=== PATIENT | male | born 2000 | race Hispanic/Latino ===

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

== ENCOUNTER 2022-03-20 13:07 | Emergency (ER) | payer SELFPAY ==
[2022-03-20 13:16] VITALS: BP 151/96; PULSE 54; RESP 16; TEMP 36.8; O2SAT 100
--- NOTE | 2022-03-20 13:29 | ED.MALEGU ---
HPI - Male Genitourinary General Chief complaint: Urogenital-Male Stated complaint: Swollen and painful right testical Time Seen by Provider: 03/20/22 13:29 Source: patient and RN notes reviewed Mode of arrival: ambulatory Limitations: no limitations History of Present Illness HPI Narrative: 21-year-old male presents to the [facility] with 3 days of increasing painful right testicle with swelling. Denies some knee abdominal pain. No nausea or vomiting. No painful urination. MD Complaint: testicle pain and testicle swelling Related Data Allergies Allergy/AdvReac Type Severity Reaction Status Date / Time No Known Allergies Allergy Verified 03/20/22 13:36 Review of Systems Review of Systems: All systems reviewed & are unremarkable except as noted in HPI and below Constitutional: Constitutional: Reports no additional constitutional complaints, Denies chills and Denies fever(s) Eyes: Eyes: Reports no additional eye complaints ENT: Reports system reviewed and no additional complaints, except as documented Cardiovascular: Cardiovascular: Reports no additional cardiovascular complaints Respiratory: Respiratory: Reports no additional respiratory complaints Gastrointestinal: Gastrointestinal: Reports no additional gastrointestinal complaints Genitourinary: Genitourinary: Reports as per HPI, Denies penile discharge and Reports testicular pain Musculoskeletal: Musculoskeletal: Reports no additional musculoskeletal complaints Integumentary/Breasts: Skin/Breast: Reports system reviewed and no additional complaints, except as docu Neurologic: Reports system reviewed and no additional complaints, except as documented Psychiatric: Psychiatric: Reports no additional psychiatric complaints Allergic/Immunologic: Allergic/Immunologic: Reports no additional allergic/immunologic complaints PMFSH Past Medical History Medical History Wrist fracture, right Surgical History Surgical History H/O wrist surgery No pertinent past surgical history Social History Social History Smoking status: Never smoker Alcohol intake: never Substance use: never Gender identity (if verbalized by the patient): Male Comments At the time of my signature, I reviewed and agree with the nursing past medical, surgical, social, and family history. There is no relevant family history pertinent to the patient complaint. Exam Const: General: healthy appearing, no acute distress, alert and well nourished Nutritional Appearance: well nourished Orientation/consciousness: patient oriented x3 Limitations: no limitations HENMT: Head: normal to inspection Ears: external ears normal Eyes: General: appearance normal, both eyes and all related structures Pupils: Equal, round and reactive pupils present Neck: Neck: normal visual inspection, no lymphadenopathy and no meningeal signs Chest: Chest palpation & inspection: normal inspection of the chest Resp: Effort & Inspection: normal respiratory effort and no use of accessory muscles Auscultation: clear to auscultation bilaterally, no crackles, no rales, no rhonchi and no wheezes Cardio: Rate: regular rate Rhythm: regular rhythm GI: GI Palp: Yes Soft to palpation and No Tenderness to palpation present (GI) : Other: Declined exam at this time because of transfer to the ER Back/Spine/Pelvis: Cervical Spine: normal cervical lordosis Thoracic/Lumbar Spine: thoracic and lumbar spine normal to inspection Skin: General skin exam: normal color Rashes: no rashes Wounds: no wounds Neuro: General: patient oriented x3, moves all extremities, no meningeal signs and no focal motor deficits Cranial nerves: Yes Equal, round and reactive pupils present Speech: normal speech Gait exam (Neuro): Normal gait present Extrem: General: normal to i
== END 2022-03-20 13:40 | disposition short-term general hospital (02) ==
LOC: EXPCOLL 13:10
PROVIDERS: Emergency Provider Nurse Practitioner
DX: N50.811 Right testicular pain (principal)
CPT/HCPCS: 99212; G0463

== ENCOUNTER 2022-03-20 13:53 | Emergency (ER) | payer SELFPAY ==
--- NOTE | ~2022-03-20 | US_ITS ---
EXAMINATION: US scrotum doppler DATE: 03/20/2022 15:03 INDICATION: Right testicular pain TECHNIQUE: Testicular sonogram utilizing grayscale and Doppler COMPARISON: None. FINDINGS: The right testis measures 3.8 x 2.2 x 2.9 cm. The left testis measures 4.2 x 2.3 x 2.6 cm. Symmetric normal grayscale appearance to both testes. Asymmetric diffuse increased vascular flow throughout the right testis relative to the left consistent with orchitis. Prominent thickening and additional sign ificant asymmetric increased vascular flow in the body and particularly at the tail of the right epid idymis relative to the left epididymis consistent with a right epididymitis. <3 mm anechoic epididyma l cyst at the more normal-appearing head of the right epididymis. The left epididymis is normal with normal vascular flow. There is no varicocele. Very small left hydrocele. IMPRESSION: 1. Right epididymo-orchitis. Reviewed, dictated and finalized at location B.
[2022-03-20 14:07] VITALS: BP 124/100; PULSE 60; RESP 18; TEMP 36.9; O2SAT 100
--- NOTE | 2022-03-20 14:23 | ED.GENADULT ---
HPI - General Adult General Chief complaint: Urogenital-Male Stated complaint: right testicle pain Time Seen by Provider: 03/20/22 14:11 Source: RN notes reviewed History of Present Illness HPI narrative: Patient presents emergency department from urgent care for right-sided testicular pain. He states symptoms began approximately 1 week ago. He is noted pain in his right testicle with swelling of his right testicle he denies any fevers or chills he denies any abdominal pain nausea or vomiting states he has had no urethral discharge she denies any known trauma or injury. States he has not take anything for the pain Related Data Allergies Allergy/AdvReac Type Severity Reaction Status Date / Time No Known Allergies Allergy Verified 03/20/22 13:36 Review of Systems Review of Systems: Gen.: Denies fevers or chills ENT: Denies congestion Respiratory: Denies shortness of breath or cough CV: Denies chest pain or palpitations GI: Denies abdominal pain nausea, emesis or diarrhea d HPI Musculoskeletal: Denies back pain or muscle pain Neuro: Denies numbness, tingling, weakness or focal weakness Skin: Denies rash Except as documented, all other systems reviewed and negative [facility] Past Medical History Medical History Wrist fracture, right Surgical History Surgical History (Updated 10/14/19 @ 21:52 by Silvia Parada MD) H/O wrist surgery No pertinent past surgical history Social History Social History Smoking status: Never smoker Alcohol intake: never Substance use: never Gender identity (if verbalized by the patient): Male Exam Narrative: APPEARANCE: No acute distress, nontoxic, resting in bed EYES: EOMI HEENT: Normocephalic, atraumatic, OMM RESPIRATORY: No respiratory distress Clear to auscultation bilaterally with no rhonchi wheezing or rales. CARDIOVASCULAR: Regular rate and rhythm without murmurs rubs or gallops. ABDOMINAL: Soft, nontender, nondistended, no rebound or guarding : No skin lesions seen no phimosis paraphimosis the right testicle is tender to palpation and swollen there is no scrotal swelling or erythema MUSCULOSKELETAl: Moves all extremities. No clubbing, cyanosis or edema. NEURO: Awake and alert. Following commands, speech normal, no focal deficits SKIN:: Warm, dry. No rashes lesions or abrasions PSYCHIATRIC: Normal affect/mood, Course Course Emergency Course: Discussed with NOLAN Mehta for Dr. Gomez presentation work-up agrees with plan for discharge patient follow-up in the office recommends the patient treated with Rocephin and doxycycline Discussed with patient my conversation with urology distress treatments for STD discussed with patient results of workup and diagnosis. Discussed need for follow-up with primary care, proper use of medication, and reasons to return to the emergency department. Patient understands and agrees to current treatment plan Vital Signs Vital signs: Vital Signs Temperature 98.5 F 03/20/22 14:07 Pulse Rate 60 03/20/22 14:07 Respiratory Rate 18 03/20/22 14:07 Blood Pressure 124/100 H 03/20/22 14:07 Pulse Oximetry 100 03/20/22 14:07 Oxygen Delivery Room Air 03/20/22 14:07 Temperature 98.5 F 03/20/22 14:07 Pulse Rate 60 03/20/22 14:07 Respiratory Rate 18 03/20/22 14:07 Blood Pressure 124/100 H 03/20/22 14:07 Pulse Oximetry 100 03/20/22 14:07 Oxygen Delivery Room Air 03/20/22 14:07 Medical Decision Making Vital Signs Vital Signs: Vital Signs Temperature 98.5 F 03/20/22 14:07 Pulse Rate 60 03/20/22 14:07 Respiratory Rate 18 03/20/22 14:07 Blood Pressure 124/100 H 03/20/22 14:07 Pulse Oximetry 100 03/20/22 14:07 Oxygen Delivery Room Air 03/20/22 14:07 Temperature 98.5 F 03/20/22 14:07 Pulse Rate 60 03/20/22 14:07 Respiratory Rate 18 03/20/22 14:07 Blood Pressure
[2022-03-20] MEDS: IBUPROFEN 600 MG TABLET PO (14:24)
[2022-03-20 15:13] LABS: Add Urine Microscopic? NO; Appearance Urine Clear (Clear); Bilirubin Urine Negative (Negative); Blood Urine Negative (Negative); Color Urine Yellow (Yellow); Glucose Urine UA Negative (Negative); Ketones Urine Negative (Negative); Leukocyte Esterase Ur Negative LEU/UL (Negative); Nitrate Urine Negative (Negative); Protein Urine Negative (Negative); Specific Grav Ur 1.018 (1.001-1.035); Urobilinogen Urine Negative mg/dL (<2.0)
== END 2022-03-20 16:45 | disposition home or self-care (01) ==
PROVIDERS: Emergency Provider Emergency Medicine
DX: N45.3 Epididymo-orchitis (principal)
CPT/HCPCS: 76870; 81003; 93976; 99284; A9270

== ENCOUNTER 2024-10-27 15:28 | Emergency (ER) | payer SELFPAY ==
[2024-10-27 15:29] VITALS: BP 141/87; PULSE 60; RESP 18; TEMP 36.4; O2SAT 99
--- OUTSIDE RECORDS SUMMARY | 2024-10-27 15:30 | XMS_ITS | Clinical Summary ---
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 Gender Identity Not on file Sexual Orientation Not on file Plan of Treatment Health Maintenance Due Date Last Done Comments Hepatitis C Virus (HCV) Screening 2000 Hepatitis B Immunization (2 of 3 - 3-dose series) 05/13/2007 04/15/2007 Influenza Immunization (#1) 2024 03/17/2016, 1 06/15/2006 SARS-COV-2 Immunization ( season) 2024 Respiratory Syncytial Virus (RSV) Immunization (Adult) (1 - 1-dose 75+ series) 2075 DTaP/Tdap/Td Immunization Discontinued 2012, 03/30/2002, 2000, Additional history exists TdaP Immunization Completed 12/21/2012 Human Papillomavirus (HPV) Immunization Completed 03/17/2016, 02/22/2013, 12/21/2012 Meningococcal Immunization (ACWY) Aged Out 03/17/2016 No longer eligible based on patient's age to complete this topic Pneumococcal Immunization Combined Aged Out No longer eligible based on patient's age to complete this topic Rotavirus Immunization Aged Out No lo nger eligible based on patient's age to complete this topic
--- NOTE | 2024-10-27 15:58 | PC.NURSE ---
Patient and guest leaving to go to another hospital-unhappy that other patients were taken before him. Attempted to explain triage system. Patient walked out with steady gait. no emesis while sitting in waiting room
--- OUTSIDE RECORDS SUMMARY | 2024-10-27 17:51 | XMS_ITS | Clinical Summary ---
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
== END 2024-10-27 15:58 | disposition left against medical advice (07) ==
LOC: ANHED 17:50
DX: R11.2 Nausea with vomiting, unspecified (principal)
CPT/HCPCS: 99199

== ENCOUNTER 2025-04-19 07:55 | Emergency (ER) | payer SELFPAY ==
[2025-04-19 07:59] VITALS: BP 145/95; PULSE 64; RESP 16; TEMP 36.7; O2SAT 99
--- OUTSIDE RECORDS SUMMARY | 2025-04-19 08:02 | XMS_ITS | Clinical Summary ---
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
--- NOTE | 2025-04-19 08:16 | ED_ITS ---
HPI - Nausea/Vomiting/Diarrhea General Chief complaint: Nausea/Vomiting/Diarrhea Stated complaint: N/V Time Seen by Provider: 04/19/25 07:58 Source: patient Mode of arrival: ambulatory Limitations: no limitations History of Present Illness HPI Narrative: This is a 25-year-old male with no significant past medical history that has been having nausea vomiting over the past 4 days has been taking Zofran and liquid hydration [id number] with some minimal relief currently takes Zantac cmxx-weu-vmaisms has been having some heartburn symptoms with no fever chills no flank pain no chest pain or shortness of breath no dysuria or hematuria patient is a marijuana user. MD elicited complaint: nausea and vomiting Onset (ago): day(s) Description of vomiting: watery Associated nausea: Yes Associated abdominal pain: Yes Location of pain: epigastric Related Data Allergies Allergy/AdvReac Type Severity Reaction Status Date / Time No Known Allergies Allergy Verified 04/19/25 07:56 Review of Systems Review of Systems: All systems reviewed & are unremarkable except as noted in HPI and below PMFSH Past Medical History Medical History Wrist fracture, right Surgical History Surgical History H/O wrist surgery No pertinent past surgical history Social History Social History Alcohol intake: never Substance use: never Living arrangements: with family Gender identity (if verbalized by the patient): Male Exam Const: General: healthy appearing, no acute distress and alert Nutritional Appearance: well nourished Orientation/consciousness: patient oriented x3 Limitations: no limitations Neck: Neck: normal visual inspection and no lymphadenopathy Chest: Chest palpation & inspection: normal inspection of the chest Resp: Effort & Inspection: normal respiratory effort Auscultation: clear to auscultation bilaterally Cardio: Rate: regular rate Rhythm: regular rhythm GI: GI Palp: Yes Soft to palpation Auscultation: normal bowel sounds : General: Yes bladder normal to palpation Skin: General skin exam: normal color Rashes: no rashes Course Course Emergency Course: Medical decision making narrative: The patient was evaluated by myself in the emergency department. History obtained from the patient was an independent historian and physical exam perfo rmed and witnessed by nurse. Patient received IV fluids with normal saline IV Zofran and IV Protonix. COVID RSV influenza performed and reviewed with patient. Repeat assessment: Patient doing well on repeat exam with no acute distress Symptoms improved since arrival to the emergency department. Vitals stable Patient agrees with discussion after shared medical decision making and agree with discharge. All questions answered to the patient's satisfaction. Advised follow-up with primary within the next 3 to 5 days. Vital Signs Vital signs: Vital Signs Temperature 36.7 C 04/19/25 07:59 Pulse Rate 64 04/19/25 07:59 Respiratory Rate 16 04/19/25 07:59 Blood Pressure 145/95 H 04/19/25 07:59 Pulse Oximetry 99 04/19/25 07:59 Oxygen Delivery Room Air 04/19/25 07:59 Temperature 36.7 C 04/19/25 07:59 Pulse Rate 64 04/19/25 07:59 Respiratory Rate 16 04/19/25 07:59 Blood Pressure 145/95 H 04/19/25 07:59 Pulse Oximetry 99 04/19/25 07:59 Oxygen Delivery Room Air 04/19/25 07:59 MDM - Nausea/Vomiting/Diarrhea Lab Data Labs: Lab Results 04/19/25 Range/Units 08:10 Influenza A (RT-PCR) Pending Influenza B (RT-PCR) Pending RSV (RT-PCR) Pending SARS-CoV-2 RNA (RT-PCR) Pending Critical Care Time Critical Care Time Critical Care Time: No Discharge Plan Discharge Clinical Impression: Gastroenteritis Nausea & vomiting Qualifiers: Vomiting type: unspecified Qualified Code(s): R11.2 - Nausea with vomiting, unspecified Patient Disposition: Home Condition: Stable Instructions: Antibiotic Form, Clear Liquid Diet (ED), Gastroenteritis (ED), Acute Nausea and Vomiting (ED) Additional Instructions: Advised patient to take medication as prescribed and to follow with primary within next 3 to 5 days for further evaluation and treatment. Patient Language: Mauritanian Prescriptions: New ondansetron 4 mg tablet,disintegrating 4 mg PO Q6H PRN (Reason: nausea and vomiting) Qty: 14 0RF pantoprazole [Protonix] 40 mg tablet,delayed release (DR/EC) 40 mg PO QAM 28 Days Qty: 28 0RF Follow-up/Referrals: Bill Glass DO [Primary Care Provider, [facility]]
[2025-04-19] MEDS: SODIUM CHLORIDE 0.9% IV 1,000 ML 999 ML IV CONT (08:18)
[2025-04-19] MEDS: ONDANSETRON INJ 4 MG/2 ML VIAL IV PUSH (08:19)
[2025-04-19] MEDS: PANTOPRAZOLE SODIUM IV 40 MG VIAL IV PUSH (08:19)
--- OUTSIDE RECORDS SUMMARY | 2025-04-19 08:47 | XMS_ITS | Clinical Summary ---
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
[2025-04-19 08:53] LABS: Influenza A QL RT-PCR Negative (Negative); Influenza B QL RT-PCR Negative (Negative); RSV RNA, RT-PCR Negative (Negative); SARS-CoV-2 RNA PCR Negative (Negative)
[2025-04-19 09:19] VITALS: BP 140/100; PULSE 60; RESP 16; TEMP 36.4; O2SAT 100
== END 2025-04-19 09:22 | disposition home or self-care (01) ==
LOC: CHSED 08:39
PROVIDERS: Emergency Provider Emergency Medicine; Referring Provider Family Medicine
DX: K52.9 Noninfective gastroenteritis and colitis, unspecified (principal); Z20.822 Contact with and (suspected) exposure to COVID-19
CPT/HCPCS: 87637; 96361; 96374; 96375; 99284; J2405; J2470; J7030